=== PATIENT | male | born 1955 | race Caucasian/White ===

== ENCOUNTER 2021-12-23 12:00 | Outpatient (CLI) | payer OTHER, SELFPAY | END 2021-12-23 12:01 | disposition home or self-care (01) | LOC: RAD 12:01 | PROVIDERS: Visit Provider Family Medicine | DX: M17.12 Unilateral primary osteoarthritis, left knee (principal); G89.29 Other chronic pain; M25.562 Pain in left knee | CPT/HCPCS: 64624; J2250; J3010 ==